=== PATIENT | female | born 1960 | race African-American/Black ===

== ENCOUNTER 2018-08-17 16:33 | Inpatient (IN) | END 2018-08-19 16:21 | disposition home or self-care (01) | DRG 312 ==

== ENCOUNTER 2018-09-05 22:13 | Inpatient (IN) | payer MEDICARE, OTHER ==
[~2018-09-05] VITALS: Ht 157.5 cm; Wt 87.7 kg
[~2018-09-05 22:13] MED LIST: CYCL1DRO BOTH EYES; HYDR25TA6 PO; MAGN400T28 PO; MECL-77 PO; OMEG-135 PO; OMEP40CA6 PO; TRAM50TA PO; VENL225T PO; VERA240C2 PO; VERA240T94 PO
[2018-09-05] MEDS ORDERED: SOD CHLORIDE 0.9% 500 ML IV STA (23:28)
[2018-09-06] MEDS ORDERED: VENL75CA89 PO (02:29)
[2018-09-06] MEDS ORDERED: VENL150C94 PO (02:29)
--- NOTE | 2018-09-06 03:21 | ERD ---
ER Documentation Chief Complaint Chief Complaint PALPITATIONS, TIRED, DIZZY X'S 2 DAYS HPI This is a 58-year-old female with history of palpitations over the past 2-3 days. She has had symptoms in the last as long as 2 hours. No sridevi chest pain. No nausea vomiting. She does feel dizzy when she gets palpitations. She was recently admitted for chest pain with negative workup. No fevers no chills. Primary care physician is Dr. Nguyen. ROS All systems reviewed and are negative except as per history of present illness. Medications Home Meds Active Scripts Magnesium Oxide* (Magnesium Oxide*) 400 Mg Tablet, 400 MG PO DAILY for 30 Days, #30 TAB 5 Refills Prov:HANSA GUZMAN MD- 08/19/18 Verapamil Hcl* (Verapamil ER*) 240 Mg Tablet.er, 240 MG PO DAILY for 30 Days, #30 TAB Prov:HANSA GUZMAN MD- 08/19/18 Cyclosporine (RESTASIS) 1 Each Droperette, 2 DROP BOTH EYES DAILY@2100 for 30 Days, #10 Prov:HANSA GUZMAN MD- 08/19/18 Reported Medications Venlafaxine Hcl* (Venlafaxine Hcl ER*) 150 Mg Cap.er.24h, 150 MG PO DAILY, CAP 09/06/18 Venlafaxine Hcl* (Venlafaxine Hcl ER*) 75 Mg Cap.er.24h, 75 MG PO DAILY, CAP 09/06/18 Tramadol Hcl* (Ultram*) 50 Mg Tablet, 50 MG PO DAILY PRN for PAIN, TAB 08/15/18 Meclizine Hcl* (Meclizine Hcl*) 25 Mg Tablet, 25 MG PO DAILY PRN for DIZZINESS, TAB 08/15/18 [place]-3 Fatty Acids/Fish Oil (Fish Oil 1,000 mg Capsule) 1 Each Capsule, 4 EACH PO DAILY, CAP 08/15/18 Omeprazole* (Omeprazole*) 40 Mg Capsule.dr, 40 MG PO AC BREAKFAST, #30 CAP 08/15/18 Hydrochlorothiazide* (Hydrochlorothiazide*) 25 Mg Tab, 25 MG PO DAILY, #30 TAB 08/15/18 Discontinued Reported Medications Verapamil Hcl* (Verapamil ER*) 240 Mg Cap24h.pel, 240 MG PO DAILY, CAP 08/15/18 Venlafaxine Hcl* (Venlafaxine Hcl ER*) 225 Mg Tab.er.24, 225 MG PO DAILY, TAB.SA 08/15/18 Allergies Allergies: Coded Allergies: aspirin (Verified Allergy, Severe, 09/06/18) latex (Verified Allergy, Severe, 09/06/18) PMhx/Soc History of Surgery: Yes (HYSTERECTOMY, OOVERECTOMY ) Anesthesia Reaction: No Hx Neurological Disorder: No Hx Respiratory Disorders: No Hx Cardiac Disorders: Yes (HTN ) Hx Psychiatric Problems: No Hx Miscellaneous Medical Probl: Yes (GERD ) Hx Alcohol Use: No Hx Substance Use: No Hx Tobacco Use: No Smoking Status: Never smoker Physical Exam Vitals Vital Signs Date Temp Pulse Resp B/P (MAP) Pulse Ox O2 O2 Flow FiO2 Time Delivery Rate 09/06/18 70 14 130/73 99 Room Air 03:04 (92) 09/06/18 98.4 75 14 125/72 99 Room Air 00:37 (89) 09/05/18 97.7 94 20 132/73 98 22:15 (92) Physical Exam Const: No acute distress Head: Atraumatic Eyes: Normal Conjunctiva ENT: Normal External Ears, Nose and Mouth. Neck: Full range of motion. No meningismus. Resp: Clear to auscultation bilaterally Cardio: Regular rate and rhythm, no murmurs Abd: Soft, non tender, non distended. Normal bowel sounds Skin: No petechiae or rashes Back: No midline or flank tenderness Ext: No cyanosis, or edema Neur: Awake and alert Psych: Normal Mood and Affect Result Diagram: 09/06/18 0020 09/06/18 0020 Results 24 hrs Laboratory Tests Test 09/06/18 00:20 White Blood Count 5.0 10^3/ul Red Blood Count 4.97 10^6/ul Hemoglobin 14.1 g/dl Hematocrit 41.6 % Mean Corpuscular Volume 83.7 fl Mean Corpuscular Hemoglobin 28.4 pg Mean Corpuscular Hemoglobin Concent 33.9 g/dl Red Cell Distribution Width 11.9 % Platelet Count 319 10^3/UL Mean Platelet Volume 10.0 fl Immature Granulocytes % 0.400 % Neutrophils % 38.4 % Lymphocytes % 49.8 % Monocytes % 10.0 % Eosinophils % 1.2 % Basophils % 0.2 % Nucleated Red Blood Cells % 0.0 /100WBC Immature Granulocytes # 0.020 10^3/ul Neutrophils # 1.9 10^3/ul Lymphocytes # 2.5 10^3/ul Monocytes # 0.5 10^3/ul Eosinophils # 0.1 10^3/ul Basophils # 0.0 10^3/ul Nucleated Red Blood Cells # 0.0 10^3/ul Sodium Level 143 mmol/L Potassium Level 4.0 mmol/L Chloride Level 102 mmol/L Carbon Dioxide Level 28 mmol/L Anion Gap 13 Blood Urea Nitrogen 20 mg/dl Creatinine 1.05 mg/dl Est Glomerular Filtrat Rate mL/min > 60 mL/min Glucose Level 102 mg/dl Calcium Level 9.9 mg/dl Total Bilirubin 0.3 mg/dl Direct Bilirubin 0.00 mg/dl Indirect Bilirubin 0.3 mg/dl Aspartate Amino Transf (AST/SGOT) 48 IU/L Alanine Aminotransferase (ALT/SGPT) 55 IU/L Alkaline Phosphatase 91 IU/L Troponin I < 0.012 ng/ml B-Type Natriuretic Peptide 30 PG/ML Total Protein 8.7 g/dl Albumin 4.6 g/dl Globulin 4.10 g/dl Albumin/Globulin Ratio 1.12 Current Medications Medications Dose Sig/Payal Start Time Status Last (Trade) Ordered Route PRN Stop Time Admin Dose Reason Admin Sodium 500 ml @ Q1H STAT 09/05/18 DC 09/06/18 Chloride 500 mls/hr IV 23:28 02:54 09/06/18 00:27 Procedures/MDM EKG: Rate/Rhythm: [Normal Sinus Rhythm] QRS, ST, T-waves: [No changes consistent w/ acute ischemia] Impression: [No evidence of ischemia or arrhythmia] Chest X-ray 1V Interpreted by me: Soft Tissue: No acute abnormalities Bones: No acute abnormalities Mediastinum/Cardiac Silhouette/Lungs: [No acute abnormalities] Patient's symptoms are concerning for cardiac cause will require inpatient workup and continuous monitoring. Further w/u for ischemia, arrhythmia, PE or dissection will be deferred to the inpatient team. Accepting Care Team: Current data and ongoing care discussed. Time: 1 AM Primary Provider: Dr. Nguyen Consulting: Deferred to inpatient team Outstanding Data: none Departure Diagnosis: Primary Impression: Palpitations Condition: Serious SARA VILLAVICENCIORahel Sep 06, 2018 03:21
[2018-09-06] MEDS ORDERED: traMADol 50 MG TAB PO ONE (03:30)
[2018-09-06] MEDS ORDERED: ACETAMINOPHEN 325 MG TAB PO PRN (07:00)
[2018-09-06] MEDS: PANTOPRAZOLE (EC) 40 MG TAB PO SCH ×2 (07:07→07:12)
--- NOTE | 2018-09-06 08:16 | HP ---
DATE OF ADMISSION: 09/05/2018 ADMITTING DIAGNOSIS: Palpitations. HISTORY OF PRESENT ILLNESS: The patient is a 58-year-old -[place] female with hypertension, fibromyalgia, asthma, who presented to the emergency room with palpitations. The patient called me a pproximately 8:00 in the evening complaining of palpitations, rapid but regular with associated short ness of breath and dizziness. The patient had a few days previously with a broke spontaneously. The patient was instructed to take her verapamil 3 hours early and she did so, but the palpitations cont inued. The patient went to the emergency room. By the time she went to the emergency room, palpitat ions had ended, but she still felt weak. The patient has no chest pain, but did have some pressure a nd associated shortness of breath and dizziness. REVIEW OF SYSTEMS: No fevers, chills or night sweats. No nausea, vomiting, diarrhea. No headache. PAST MEDICAL HISTORY: Fibromyalgia, hypertension, gastroesophageal reflux disease/gastritis, osteoar thritis, Lichen sclerosis, sarcoidosis, major depression, dry eye syndrome. PAST SURGICAL HISTORY: Cholecystectomy. FAMILY HISTORY: Hypertension and stroke. ALLERGIES: 1. ASPIRIN. 2. LATEX. MEDICATIONS: 1. Meclizine 25 mg p.r.n. 2. Tramadol 50 mg 1 to 2 q.6h. p.r.n. 3. Hydrochlorothiazide 25 mg daily. 4. Effexor ER 225 mg daily. 5. Omeprazole 40 mg daily. 6. Magnesium oxide 400 mg daily. 7. Verapamil ER 240 mg daily. SOCIAL HISTORY: The patient is , lives with her family. No tobacco or alcohol use. PHYSICAL EXAMINATION: VITALS SIGNS: Initial presentation to the emergency room, the patient had a temperature of 97.7, pul se of 94, respirations 20, blood pressure 132/73 and pulse oximetry of 98. Latest vital signs, pulse of 63, respirations 18, blood pressure 149/76, oxygen saturation 95% on room air. GENERAL: Well-developed, obese female, in no acute distress, lying in bed. HEENT: EOMI, PERRLA. Oropharynx clear. NECK: 2+ carotid upstroke, no bruits. No lymphadenopathy, no thyromegaly, no jugular venous distent ion. LUNGS: Clear to auscultation bilaterally. HEART: Regular rate and rhythm. Normal S1, S2. No murmurs, gallops or rub noted. ABDOMEN: Moderate obesity, normoactive bowel sounds, no hepatosplenomegaly. Nontender, nondistended . RECTAL: Deferred. EXTREMITIES: No cyanosis, clubbing or edema. NEUROLOGIC: Nonfocal. LABORATORY EXAMINATION: White blood cell count 5.0, hemoglobin 14.1, hematocrit 41.6, platelets 319. Sodium 143, potassium 4.0, chloride 102, bicarbonate 28, BUN of 20, creatinine 1.05, glucose 102, c alcium 9.9, total bilirubin 0.3, direct bilirubin 0.3, AST of 48, ALT of 55, alkaline phosphatase 91. Troponin is less than 0.012. Brain natriuretic peptide is 30. Total protein is 8.7, albumin 4.6. IMAGING: Chest x-ray shows no active disease. EKG shows normal sinus rhythm without acute ischemic changes. IMPRESSION: The patient is a 58-year-old -[place] female with hypertension, fibromyalgia, as thma with repeated episodes of palpitations with associated shortness of breath and dizziness. The p atient is being admitted to telemetry observation for further evaluation. ASSESSMENT AND PLAN: 1. Palpitations. We will check thyroid function test. We will do serial troponins and CKs and to r ule out myocardial infarction. We will have cardiology evaluate the patient to assist with workup an d treatment. The patient will likely require an event monitor as an outpatient for further evaluatio n. The patient was recently in the hospital a few weeks ago for near syncope and had echocardiogram, which showed normal heart cardiac function and LV function, but some stage I diastolic dysfunction. We will continue the patient's routine blood pressure medications. 2. Major depression. We will continue the patient's Effexor. 3. Gastroesophageal reflux disease. We will continue the patient's diet and proton pump inhibitor. 4. Asthma. Continue with p.r.n. medications, but currently stable and we will try to avoid any beta agonists to avoid any further tachycardia. Dictated By: HANSA GUZMAN MD SR/NTS Conf#: [id number] DID#: [id number] CC: HANSA GUZMAN MD; YULIA MOHR MD;*EndCC*
[2018-09-06] MEDS: HYDROCHLOROTHIAZIDE 25 MG TAB PO SCH (08:22)
[2018-09-06] MEDS ORDERED: VENLAFAXINE (XR) 37.5 MG CAP PO SCH (09:00)
[2018-09-06 12:00] VITALS: PULSE 69
[2018-09-06 12:44] VITALS: Ht 157.5 cm; Wt 87.7 kg
--- NOTE | 2018-09-06 15:18 | CONS ---
Date/Time of Note Date/Time of Note DATE: 09/06/18 TIME: 15:14 Assessment/Plan Assessment/Plan Assessment/Plan Palpitations Preserved ejection fraction History of SVTlikely atrial tachycardia Hypertension Diabetes Obesity -Patient presents with palpitations which have been intermittent for the past 5 days. During her recent previous admission, she did have episodes of what appeared as atrial tachycardia that improved with verapamil. She is currently on 240 mg daily. I would increase her verapamil to twice daily dosing and maintain on telemetry to evaluate response. If recurrence, would consider antiarrhythmic therapy. Maintain potassium above 4.0 and magnesium above 2.0. Of note, TSH checked in July was within normal limits Result Diagram: 09/06/18 0020 09/06/18 0020 Results 24hrs Laboratory Tests Test 09/06/18 00:20 09/06/18 07:03 09/06/18 11:33 White Blood Count 5.0 # Red Blood Count 4.97 # Hemoglobin 14.1 # Hematocrit 41.6 # Mean Corpuscular Volume 83.7 Mean Corpuscular Hemoglobin 28.4 L Mean Corpuscular Hemoglobin Concent 33.9 Red Cell Distribution Width 11.9 Platelet Count 319 # Mean Platelet Volume 10.0 Immature Granulocytes % 0.400 Neutrophils % 38.4 L Lymphocytes % 49.8 Monocytes % 10.0 Eosinophils % 1.2 Basophils % 0.2 Nucleated Red Blood Cells % 0.0 Immature Granulocytes # 0.020 Neutrophils # 1.9 Lymphocytes # 2.5 Monocytes # 0.5 Eosinophils # 0.1 Basophils # 0.0 Nucleated Red Blood Cells # 0.0 Sodium Level 143 Potassium Level 4.0 Chloride Level 102 Carbon Dioxide Level 28 Anion Gap 13 Blood Urea Nitrogen 20 Creatinine 1.05 H Est Glomerular Filtrat Rate mL/min > 60 Glucose Level 102 Calcium Level 9.9 Total Bilirubin 0.3 Direct Bilirubin 0.00 Indirect Bilirubin 0.3 Aspartate Amino Transf (AST/SGOT) 48 H Alanine Aminotransferase (ALT/SGPT) 55 Alkaline Phosphatase 91 Troponin I < 0.012 < 0.012 < 0.012 B-Type Natriuretic Peptide 30 Total Protein 8.7 H Albumin 4.6 Globulin 4.10 H Albumin/Globulin Ratio 1.12 Creatine Kinase 78 68 Creatine Kinase Index 0.7 0.8 Creatinine Kinase MB (Mass) 0.57 0.53 Magnesium Level 2.3 Consultation Date/Type/Reason Admit Date/Time Sep 06, 2018 at 02:26 Type of Consult cv Reason for Consultation Palpitations Hx of Present Illness This is a 66-year-old female with past medical history of hypertension, SVT who presents with palpitations which reoccurred proxy 5 days ago. Symptoms have been having at random times. Most recent episode was yesterday evening going on for a few hours. There was some associated shortness of breath 2 as well. She did take her verapamil with mild improvements of symptoms but still with recurrent palpitations. Because of worsening symptoms, she came to the emergency room for evaluation. She denies any current palpitations, shortness of breath or chest pain. She denies exertional chest pain or dizziness. 12 point review of systems was performed with all pertinent positives and negatives mentioned above and all else is negative Past Medical History SVT Asthma Medical History: hypertension Medications Current Medications Verapamil HCl (Isoptin Sr) 240 mg HS PO ; Start 09/06/18 at 21:00 Venlafaxine HCl (Effexor Xr) 225 mg DAILY PO ; Start 09/06/18 at 09:00 Hydrochlorothiazide (Hydrochlorothiazide) 25 mg DAILY PO ; Start 09/06/18 at 09:00 Pantoprazole (Protonix Tab) 40 mg DAILY@0600 PO ; Start 09/06/18 at 07:00 Tramadol HCl (Ultram) 100 mg Q6H PRN PO moderate to severe pain; Start 09/06/18 at 07:00 Acetaminophen (Tylenol Tab) 650 mg Q6H PRN PO MILD PAIN(1-3)OR ELEVATED TEMP; Start 09/06/18 at 07:00 Allergies: Coded Allergies: aspirin (Verified Allergy, Severe, 09/06/18) latex (Verified Allergy, Severe, 09/06/18) Family History Significant Family History: no pertinent family hx Social History Smoking Status: Former smoker Exam/Review of Systems Vital Signs Vitals Vital Signs Date Temp Pulse Resp B/P (MAP) Pulse Ox O2 O2 Flow FiO2 Time Delivery Rate 09/06/18 69 12:00 09/06/18 98.7 18 144/65 99 Room Air 11:22 (91) Exam No apparent distress Constitutional: alert, oriented, obese Head: normocephalic Respiratory: other (Coarse breath sounds bilaterally, no wheezing) Cardiovascular: regular rate and rhythm, other (S1-S2 heard) Gastrointestinal: soft, non-tender, bowel sounds Extremities: edema (Trace) Medications Medications Current Medications Verapamil HCl (Isoptin Sr) 240 mg HS PO ; Start 09/06/18 at 21:00 Venlafaxine HCl (Effexor Xr) 225 mg DAILY PO ; Start 09/06/18 at 09:00 Hydrochlorothiazide (Hydrochlorothiazide) 25 mg DAILY PO ; Start 09/06/18 at 09:00 Pantoprazole (Protonix Tab) 40 mg DAILY@0600 PO ; Start 09/06/18 at 07:00 Tramadol HCl (Ultram) 100 mg Q6H PRN PO moderate to severe pain; Start 09/06/18 at 07:00 Acetaminophen (Tylenol Tab) 650 mg Q6H PRN PO MILD PAIN(1-3)OR ELEVATED TEMP; Start 09/06/18 at 07:00 Imaging Imaging ECG with sinus rhythm at 100 bpm, QRS 80 ms, nonspecific ST abnormalities Santiago Dang DO Sep 06, 2018 15:18
[2018-09-06 15:38] VITALS: BP 126/60; PULSE 85
[2018-09-06 16:00] VITALS: PULSE 72
[2018-09-06 20:00] VITALS: BP 128/78; PULSE 73; RESP 17
[2018-09-06 20:10] VITALS: PULSE 74
[2018-09-06] MEDS: CYCLOSPORINE 0.05% OPH DROPERETTE BOTH EYES SCH (20:20)
[2018-09-06] MEDS: VERAPAMIL (SR) 240 MG TAB PO SCH (20:24)
[2018-09-06] MEDS ORDERED: VERAPAMIL (SR) 240 MG TAB PO SCH (21:00)
[2018-09-06] MEDS: traMADol 50 MG TAB PO PRN (21:25)
[2018-09-07] VITALS (14 sets, daily range): BP systolic 104–173; BP diastolic 56–84; PULSE 56–88; RESP 16–20
[2018-09-07] MEDS: CYCLOSPORINE 0.05% OPH DROPERETTE BOTH EYES SCH (08:49)
[2018-09-07] MEDS: VENLAFAXINE (XR) 75 MG CAP PO SCH (08:49)
[2018-09-07] MEDS: VERAPAMIL (SR) 240 MG TAB PO SCH ×2 (08:50→20:20)
[2018-09-07] MEDS: HYDROCHLOROTHIAZIDE 25 MG TAB PO SCH (08:50)
--- NOTE | 2018-09-07 09:09 | PN ---
DATE: 09/07/2018 SUBJECTIVE: The patient with some palpitations last night, but otherwise feels fine. OBJECTIVE: VITAL SIGNS: Temperature 97.4, pulse 65, respirations 18, blood pressure 120/66, oxygen saturation 9 7% on room air. GENERAL: Well-developed, well-nourished female in no acute distress, lying in bed. LUNGS: Clear to auscultation bilaterally. HEART: Regular rate and rhythm. ABDOMEN: Soft, nontender. NEUROLOGIC: Nonfocal. LABORATORY DATA: Pending. ASSESSMENT AND PLAN: 1. Palpitations/tachycardia. The patient with no significant arrhythmias during the night. The pat ient will receive the b.i.d. dosing of verapamil for the first time today and we will monitor the pat ient's heart rate, blood pressure on this. We will change the patient's status to inpatient for furt her evaluation in order to monitor the patient. If the patient continues to improve, we will continu e with his medication and perhaps discharge the patient over the weekend. 2. Asthma, stable. Continue with p.r.n. medicines. 3. Fibromyalgia, stable. Continue with p.r.n. analgesics. 4. Depression, stable. Continue with medicines. Dictated By: HANSA GUZMAN MD SR/NTS Conf#: [id number] DID#: [id number] CC: HANSA GUZMAN MD;*EndCC*
--- NOTE | 2018-09-07 12:20 | CONS ---
Date/Time of Note Date/Time of Note DATE: 09/07/18 TIME: 12:18 Assessment/Plan Assessment/Plan Assessment/Plan Palpitations Preserved ejection fraction History of SVTlikely atrial tachycardia Hypertension Diabetes Obesity -Patient's verapamil increased to twice daily dosing to help suppress any further SVT. Telemetry reviewed, brief episode of SVT overnight lasting a few seconds. We will continue twice daily verapamil. If symptoms continue to improve as well as no significant arrhythmias on telemetry, DC planning in the next 24 hours. If not, could consider initiation of antiarrhythmics such as Multaq. -Outpatient electrophysiology evaluation with Dr Clark upon discharge. Result Diagram: 09/06/18 0020 09/07/18 0924 Results 24hrs Laboratory Tests Test 09/07/18 09:24 Sodium Level 144 Potassium Level 3.8 Chloride Level 101 Carbon Dioxide Level 31 Anion Gap 12 Blood Urea Nitrogen 19 Creatinine 0.93 Est Glomerular Filtrat Rate mL/min > 60 Glucose Level 114 Calcium Level 9.7 Magnesium Level 2.1 Consultation Date/Type/Reason Admit Date/Time Sep 06, 2018 at 02:26 Initial Consult Date Type of Consult cv 24 HR Interval Summary Free Text/Dictation Feeling better, less palpitations. No chest pain or shortness of breath Exam/Review of Systems Vital Signs Vitals Vital Signs Date Temp Pulse Resp B/P (MAP) Pulse Ox O2 O2 Flow FiO2 Time Delivery Rate 09/07/18 98.1 79 19 136/81 100 Room Air 11:41 (99) Intake and Output 09/06/18 09/06/18 09/07/18 1515:00 23:00 07:00 IntakeIntake Total 980 ml 1000 ml BalanceBalance 980 ml 1000 ml Exam No apparent distress Constitutional: alert, oriented, obese Head: normocephalic Respiratory: clear to auscultation, normal air movement Cardiovascular: regular rate and rhythm, other (S1-S2 heard) Gastrointestinal: soft, non-tender, bowel sounds Extremities: edema Medications Medications Current Medications Hydrochlorothiazide (Hydrochlorothiazide) 25 mg DAILY PO Last administered on 09/07/18at 08:50; Admin Dose 25 MG; Start 09/06/18 at 09:00 Pantoprazole (Protonix Tab) 40 mg DAILY@0600 PO ; Start 09/06/18 at 07:00 Tramadol HCl (Ultram) 100 mg Q6H PRN PO moderate to severe pain Last administered on 09/06/18at 21:25; Admin Dose 100 MG; Start 09/06/18 at 07:00 Acetaminophen (Tylenol Tab) 650 mg Q6H PRN PO MILD PAIN(1-3)OR ELEVATED TEMP; Start 09/06/18 at 07:00 Verapamil HCl (Isoptin Sr) 240 mg BID PO Last administered on 09/07/18at 08:50; Admin Dose 240 MG; Start 09/06/18 at 21:00 Venlafaxine HCl (Effexor Xr) 225 mg DAILY PO Last administered on 09/07/18at 08:49; Admin Dose 225 MG; Start 09/06/18 at 15:15 Miscellaneous Information Patients own medicat... BID@10,16 XX ; Start 09/07/18 at 10:00 Cyclosporine (Restasis) 1 drop DAILY BOTH EYES Last administered on 09/06/18at 20:20; Admin Dose 1 DROP; Start 09/06/18 at 20:00 Santiago Dang DO Sep 07, 2018 12:20
[2018-09-07] MEDS ORDERED: POTASSIUM CHLORIDE (SR) 20 MEQ TAB PO STA (13:02)
[2018-09-07] MEDS: traMADol 50 MG TAB PO PRN (18:04)
[2018-09-07] MEDS ORDERED: ALBUTEROL HFA 8 GM INHALER INH PRN (21:30)
[2018-09-08] VITALS (12 sets, daily range): BP systolic 125–152; BP diastolic 56–87; PULSE 52–89; RESP 18–20
[2018-09-08] MEDS: PANTOPRAZOLE (EC) 40 MG TAB PO SCH (06:19)
[2018-09-08] MEDS ORDERED: POTASSIUM CHLORIDE (SR) 20 MEQ TAB PO STA (08:15)
[2018-09-08] MEDS: VERAPAMIL (SR) 240 MG TAB PO SCH ×2 (08:57→21:19)
[2018-09-08] MEDS: HYDROCHLOROTHIAZIDE 25 MG TAB PO SCH (08:59)
[2018-09-08] MEDS: CYCLOSPORINE 0.05% OPH DROPERETTE BOTH EYES SCH (08:59)
[2018-09-08] MEDS: VENLAFAXINE (XR) 75 MG CAP PO SCH (09:01)
[2018-09-08] MEDS: traMADol 50 MG TAB PO PRN (09:04)
--- NOTE | 2018-09-08 10:07 | CONS ---
Date/Time of Note Date/Time of Note DATE: 09/08/18 TIME: 10:04 Assessment/Plan Assessment/Plan Hospital Course Atypical chest pain Palpitations Preserved ejection fraction History of SVTlikely atrial tachycardia Hypertension Diabetes Obesity Assessment/Plan 1) atypical pain, doubt ACS, may be related to GI 2) continue meds 3) will check 2 serial troponins given that due to duration of pain troponins may be diagnostic if cardiac Result Diagram: 09/06/18 0020 09/08/18 0600 Results 24hrs Laboratory Tests Test 09/08/18 06:00 Sodium Level 143 Potassium Level 3.7 Chloride Level 99 Carbon Dioxide Level 33 H Anion Gap 11 Blood Urea Nitrogen 20 Creatinine 1.01 H Est Glomerular Filtrat Rate mL/min > 60 Glucose Level 106 Calcium Level 9.6 Magnesium Level 2.0 Consultation Date/Type/Reason Admit Date/Time Sep 07, 2018 at 19:37 Initial Consult Date Type of Consult cv 24 HR Interval Summary Free Text/Dictation reports localized epigastric chest pain, over 0.2 square inch, not exertional, not positional or inspirational, felt as spasms, lasting few seconds, but multiple times, radiating to the back Detailed Summary Respiratory: no complaints Cardiovascular: chest pain Gastrointestinal: flatus Musculoskeletal: back pain Skin: no complaints Neurologic: no complaints Endocrine: no complaints Exam/Review of Systems Vital Signs Vitals Vital Signs Date Temp Pulse Resp B/P (MAP) Pulse Ox O2 O2 Flow FiO2 Time Delivery Rate 09/08/18 52 08:01 09/08/18 97.8 18 125/56 93 07:30 (79) 09/07/18 Nasal 21:06 Cannula 09/07/18 2.0 21:06 Intake and Output 09/07/18 09/07/18 09/08/18 1515:00 23:00 07:00 IntakeIntake Total 700 ml BalanceBalance 700 ml Exam Constitutional: alert, oriented Head: normocephalic, atraumatic Neck: supple Respiratory: clear to auscultation Cardiovascular: regular rate and rhythm Gastrointestinal: soft Musculoskeletal: nl extremities to inspection Extremities: normal pulses Medications Medications Current Medications Hydrochlorothiazide (Hydrochlorothiazide) 25 mg DAILY PO Last administered on 09/08/18at 08:59; Admin Dose 25 MG; Start 09/06/18 at 09:00 Pantoprazole (Protonix Tab) 40 mg DAILY@0600 PO Last administered on 09/08/18at 06:19; Admin Dose 40 MG; Start 09/06/18 at 07:00 Tramadol HCl (Ultram) 100 mg Q6H PRN PO moderate to severe pain Last administered on 09/08/18at 09:04; Admin Dose 100 MG; Start 09/06/18 at 07:00 Acetaminophen (Tylenol Tab) 650 mg Q6H PRN PO MILD PAIN(1-3)OR ELEVATED TEMP; Start 09/06/18 at 07:00 Verapamil HCl (Isoptin Sr) 240 mg BID PO Last administered on 09/08/18at 08:57; Admin Dose 240 MG; Start 09/06/18 at 21:00 Venlafaxine HCl (Effexor Xr) 225 mg DAILY PO Last administered on 09/08/18at 0 9:01; Admin Dose 225 MG; Start 09/06/18 at 15:15 Miscellaneous Information Patients own medicat... BID@10,16 XX ; Start 09/07/18 at 10:00 Cyclosporine (Restasis) 1 drop DAILY BOTH EYES Last administered on 09/08/18at 08:59; Admin Dose 1 DROP; Start 09/06/18 at 20:00 Albuterol (Ventolin Hfa) 3 puff Q4H RESP THERAPY PRN INH SHORTNESS OF BREATH; Start 09/07/18 at 21:30 RICCI HOLLINGSWORTH MD Sep 08, 2018 10:07
--- NOTE | 2018-09-08 12:28 | PN ---
Date/Time of Note Date/Time of Note DATE: 09/08/18 TIME: 12:24 Assessment/Plan VTE Prophylaxis Risk score (from Nsg)>0 risk: 2 SCD applied (from Ns): No SCD contraindicated: low risk/ambulating Pharmacological prophylaxis: other Lines/Catheters IV Catheter Type (from Nrsg): [place] [facility] Urinary Cath still in place: No Assessment/Plan Hospital Course chest pain- cards following. troponin x 2 pending. Assessment/Plan 1. Palpitations/tachycardia. The patient with no significant arrhythmias during the night. The patient will receive the b.i.d. dosing of verapamil for the first time today and we will monitor the patient's heart rate, blood pressure on this. We will change the patient's status to inpatient for further evaluation in order to monitor the patient. If the patient continues to improve, we will continue with his medication and perhaps discharge the patient over the weekend. -mild bradycardia -chest pain. cards following getting troponin 2. Asthma, stable. Continue with p.r.n. medicines. 3. Fibromyalgia, stable. Continue with p.r.n. analgesics. 4. Depression, stable. Continue with medicines. 5. gi- abd discomfort. pt has chronic stomach problems. egd was scheduled as out pt. will start tums. see if any improvement. Result Diagram: 09/06/18 0020 09/08/18 0600 Results 24hrs Laboratory Tests Test 09/08/18 06:00 Sodium Level 143 Potassium Level 3.7 Chloride Level 99 Carbon Dioxide Level 33 H Anion Gap 11 Blood Urea Nitrogen 20 Creatinine 1.01 H Est Glomerular Filtrat Rate mL/min > 60 Glucose Level 106 Calcium Level 9.6 Magnesium Level 2.0 Subjective 24 Hr Interval Summary Free Text/Dictation multi problems during the night. had shoulder pain and agone then sob, then chest pain . and back pain. bradycardia. Exam/Review of Systems Vital Signs Vitals Vital Signs Date Temp Pulse Resp B/P (MAP) Pulse Ox O2 O2 Flow FiO2 Time Delivery Rate 09/08/18 97.8 71 18 152/59 97 11:10 (90) 09/07/18 Nasal 21:06 Cannula 09/07/18 2.0 21:06 Intake and Output 09/07/18 09/07/18 09/08/18 1515:00 23:00 07:00 IntakeIntake Total 700 ml BalanceBalance 700 ml Exam Head: normocephalic Neck: supple Respiratory: clear to auscultation Cardiovascular: regular rate and rhythm Medications Medications Current Medications Hydrochlorothiazide (Hydrochlorothiazide) 25 mg DAILY PO Last administered on 09/08/18at 08:59; Admin Dose 25 MG; Start 09/06/18 at 09:00 Pantoprazole (Protonix Tab) 40 mg DAILY@0600 PO Last administered on 09/08/18at 06:19; Admin Dose 40 MG; Start 09/06/18 at 07:00 Tramadol HCl (Ultram) 100 mg Q6H PRN PO moderate to severe pain Last administered on 09/08/18 09:04; Admin Dose 100 MG; Start 09/06/18 at 07:00 Acetaminophen (Tylenol Tab) 650 mg Q6H PRN PO MILD PAIN(1-3)OR ELEVATED TEMP; Start 09/06/18 at 07:00 Verapamil HCl (Isoptin Sr) 240 mg BID PO Last administered on 09/08/18at 08:57; Admin Dose 240 MG; Start 09/06/18 at 21:00 Venlafaxine HCl (Effexor Xr) 225 mg DAILY PO Last administered on 09/08/18at 09:01; Admin Dose 225 MG; Start 09/06/18 at 15:15 Miscellaneous Information Patients own medicat... BID@10,16 XX ; Start 09/07/18 at 10:00 Cyclosporine (Restasis) 1 drop DAILY BOTH EYES Last administered on 09/08/18at 08:59; Admin Dose 1 DROP; Start 09/06/18 at 20:00 Albuterol (Ventolin Hfa) 3 puff Q4H RESP THERAPY PRN INH SHORTNESS OF BREATH; Start 09/07/18 at 21:30 VENKATESH BANUELOS MD Sep 08, 2018 12:28
[2018-09-08] MEDS: CALCIUM CARBONATE 500 MG CHEW TAB PO SCH ×3 (13:28→18:09)
[2018-09-08] MEDS: ENOXAPARIN 30 MG/0.3 ML SYG SC SCH (15:35)
[2018-09-09] VITALS (8 sets, daily range): BP systolic 118–147; BP diastolic 58–72; PULSE 42–65; RESP 18–20
[2018-09-09] MEDS: PANTOPRAZOLE (EC) 40 MG TAB PO SCH (06:13)
[2018-09-09] MEDS: CALCIUM CARBONATE 500 MG CHEW TAB PO SCH ×2 (08:37→15:15)
[2018-09-09] MEDS: HYDROCHLOROTHIAZIDE 25 MG TAB PO SCH (08:38)
[2018-09-09] MEDS: VENLAFAXINE (XR) 75 MG CAP PO SCH (08:38)
[2018-09-09] MEDS: VERAPAMIL (SR) 240 MG TAB PO SCH (08:38)
[2018-09-09] MEDS: traMADol 50 MG TAB PO PRN (08:53)
[2018-09-09] MEDS: ENOXAPARIN 30 MG/0.3 ML SYG SC SCH (08:59)
[2018-09-09] MEDS: CYCLOSPORINE 0.05% OPH DROPERETTE BOTH EYES SCH (10:01)
[2018-09-09] MEDS ORDERED: VERA240T94 PO (12:30)
--- NOTE | 2018-09-09 12:38 | DS ---
Date/Time of Note Date/Time of Note DATE: 09/09/18 TIME: 12:35 Discharge Summary Admission/Discharge Info Admit Date/Time Sep 07, 2018 at 19:37 Discharge Date/Time Discharge Diagnosis arrhythmia Patient Condition: Good Consults cards Hospital Course chest pain- cards following. troponin x 2 pending. Home Meds Active Scripts Verapamil Hcl* (Verapamil ER*) 240 Mg Tablet.er, 240 MG PO BID for 30 Days, TAB Prov:VENKATESH BANUELOS MD 09/09/18 Magnesium Oxide* (Magnesium Oxide*) 400 Mg Tablet, 400 MG PO DAILY for 30 Days, #30 TAB 5 Refills Prov:ALEXEI MCDANIEL MD- 08/19/18 Verapamil Hcl* (Verapamil ER*) 240 Mg Tablet.er, 240 MG PO DAILY for 30 Days, #30 TAB Prov:ALEXEI MCDANIEL MD- 08/19/18 Cyclosporine (RESTASIS) 1 Each Droperette, 2 DROP BOTH EYES DAILY@2100 for 30 Days, #10 Prov:ALEXEI MCDANIEL MD- 08/19/18 Reported Medications Venlafaxine Hcl* (Venlafaxine Hcl ER*) 150 Mg Cap.er.24h, 150 MG PO DAILY, CAP 09/06/18 Venlafaxine Hcl* (Venlafaxine Hcl ER*) 75 Mg Cap.er.24h, 75 MG PO DAILY, CAP 09/06/18 Tramadol Hcl* (Ultram*) 50 Mg Tablet, 50 MG PO DAILY PRN for PAIN, TAB 08/15/18 Meclizine Hcl* (Meclizine Hcl*) 25 Mg Tablet, 25 MG PO DAILY PRN for DIZZINESS, TAB 08/15/18 [place]-3 Fatty Acids/Fish Oil (Fish Oil 1,000 mg Capsule) 1 Each Capsule, 4 EACH PO DAILY, CAP 08/15/18 Omeprazole* (Omeprazole*) 40 Mg Capsule.dr, 40 MG PO AC BREAKFAST, #30 CAP 08/15/18 Hydrochlorothiazide* (Hydrochlorothiazide*) 25 Mg Tab, 25 MG PO DAILY, #30 TAB 08/15/18 Discontinued Reported Medications Verapamil Hcl* (Verapamil ER*) 240 Mg Cap24h.pel, 240 MG PO DAILY, CAP 08/15/18 Venlafaxine Hcl* (Venlafaxine Hcl ER*) 225 Mg Tab.er.24, 225 MG PO DAILY, TAB.SA 08/15/18 Follow-up Plan 1. Palpitations/tachycardia. The patient with no significant arrhythmias during the night. The patient will receive the b.i.d. dosing of verapamil for the first time today and we will monitor the patient's heart rate, blood pressure on this. We will change the patient's status to inpatient for further evaluation in order to monitor the patient. If the patient continues to improve, we will continue with his medication and perhaps discharge the patient over the weekend. -mild bradycardia -chest pain. cards following getting troponin -troponin was neg x 2. overall been doing well. pulse is running int he 50's and higher. pt on verapamil from 240 q day to bid. pt to f/u with primary this week. may need to decrease the dose if pt becomes symptomatic. currently tolerating bradycardia. pt to get clearance by cards before discharge. 2. Asthma, stable. Continue with p.r.n. medicines. 3. Fibromyalgia, stable. Continue with p.r.n. analgesics. 4. Depression, stable. Continue with medicines. 5. gi- abd discomfort. pt has chronic stomach problems. egd was scheduled as out pt. better with tums after meals. Primary Care Provider Alexei Mcdaniel Time spent on discharge: > 30 minutes Pending Labs Laboratory Tests Test 09/08/18 19:23 Troponin I < 0.012 ng/ml (0.000-0.120) VENKATESH BANUELOS MD Sep 09, 2018 12:38
[2018-09-09] MEDS ORDERED: POTASSIUM CHLORIDE (SR) 20 MEQ TAB PO STA (13:04)
--- NOTE | 2018-09-09 13:10 | CONS ---
Date/Time of Note Date/Time of Note DATE: 09/09/18 TIME: 13:08 Assessment/Plan Assessment/Plan Assessment/Plan Palpitations Preserved ejection fraction History of SVTlikely atrial tachycardia Hypertension Diabetes Obesity -Denies any further palpitations with no evidence of SVT seen on telemetry. Heart rate in the 40s-50s while sleeping, would adjust verapamil 180 mg twice daily, prescription given to nurse, would order potassium supplementation. DC planning Result Diagram: 09/06/18 0020 09/08/18 0600 Results 24hrs Laboratory Tests Test 09/08/18 19:23 Troponin I < 0.012 Consultation Date/Type/Reason Admit Date/Time Sep 07, 2018 at 19:37 Initial Consult Date Type of Consult cv 24 HR Interval Summary Free Text/Dictation Denies palpitations, chest pain. Exam/Review of Systems Vital Signs Vitals Vital Signs Date Temp Pulse Resp B/P (MAP) Pulse Ox O2 O2 Flow FiO2 Time Delivery Rate 09/09/18 97.8 58 18 137/62 94 Room Air 12:01 (87) 09/07/18 2.0 21:06 Intake and Output 09/08/18 09/08/18 09/09/18 1414:59 22:59 06:59 IntakeIntake Total 700 ml 700 ml 850 ml BalanceBalance 700 ml 700 ml 850 ml Exam No apparent distress Constitutional: alert, oriented, obese Head: normocephalic Respiratory: clear to auscultation, normal air movement Cardiovascular: regular rate and rhythm, other (S1-S2 heard) Gastrointestinal: soft, non-tender, bowel sounds Extremities: other (No significant edema) Medications Medications Current Medications Hydrochlorothiazide (Hydrochlorothiazide) 25 mg DAILY PO Last administered on 09/09/18at 08:38; Admin Dose 25 MG; Start 09/06/18 at 09:00 Pantoprazole (Protonix Tab) 40 mg DAILY@0600 PO Last administered on 09/09/18at 06:13; Admin Dose 40 MG; Start 09/06/18 at 07:00 Tramadol HCl (Ultram) 100 mg Q6H PRN PO moderate to severe pain Last administered on 09/09/18at 08:53; Admin Dose 100 MG; Start 09/06/18 at 07:00 Acetaminophen (Tylenol Tab) 650 mg Q6H PRN PO MILD PAIN(1-3)OR ELEVATED TEMP; Start 09/06/18 at 07:00 Verapamil HCl (Isoptin Sr) 240 mg BID PO Last administered on 09/09/18 08:38; Admin Dose 240 MG; Start 09/06/18 at 21:00 Venlafaxine HCl (Effexor Xr) 225 mg DAILY PO Last administered on 09/09/18 08:38; Admin Dose 225 MG; Start 09/06/18 at 15:15 Miscellaneous Information Patients own medicat... BID@,16 XX ; Start 09/07/18 at 10:00 Cyclosporine (Restasis) 1 drop DAILY BOTH EYES Last administered on 09/09/18 10:01; Admin Dose 1 DROP; Start 09/06/18 at 20:00 Albuterol (Ventolin Hfa) 3 puff Q4H RESP THERAPY PRN INH SHORTNESS OF BREATH; Start 09/07/18 at 21:30 Calcium Carbonate (Tums) 1,000 mg PC MEALS PO Last administered on 09/09/18 08:37; Admin Dose 1,000 MG; Start 09/08/18 at 18:55 Enoxaparin Sodium (Lovenox) 30 mg DAILY SC Last administered on 09/09/18 08:5 9; Admin Dose 30 MG; Start 09/08/18 at 14:30 Santiago Dang DO Sep 09, 2018 13:10
== END 2018-09-09 18:55 | disposition home or self-care (01) | DRG 309 ==
LOC: E/R 22:13 → TEL 09-06 02:26 → OBSVTOIN 09-07 19:37
PROVIDERS: ADMIT Internal Medicine; ATTEND Internal Medicine
DX: R00.0 Tachycardia, unspecified (principal); I50.30 Unspecified diastolic (congestive) heart failure; I11.0 Hypertensive heart disease with heart failure; R07.89 Other chest pain; J45.909 Unspecified asthma, uncomplicated; M79.7 Fibromyalgia; F32.9 Major depressive disorder, single episode, unspecified; D86.9 Sarcoidosis, unspecified; K21.9 Gastro-esophageal reflux disease without esophagitis; E66.9 Obesity, unspecified; E11.9 Type 2 diabetes mellitus without complications; Z68.35 Body mass index [BMI] 35.0-35.9, adult; Z88.0 Allergy status to penicillin; Z87.891 Personal history of nicotine dependence; Z82.3 Family history of stroke; Z82.49 Family history of ischemic heart disease and other diseases of the circulatory system; R00.1 Bradycardia, unspecified
CPT/HCPCS: 36415; 71045; 80048; 80053; 82550; 82553; 83735; 83880; 84484; 85025; 87081; 93005; G0378; J1650; J7040